=== PATIENT | male | born 1955 | race Caucasian/White ===

== ENCOUNTER 2023-04-29 08:41 | Day surgery (SDC) | payer OTHER ==
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
[~2023-04-29 08:41] MED LIST: Lactated Ringers 1,000 ML IV SCH
[2023-04-29] MEDS ORDERED: Lactated Ringers 1,000 ML IV ONE (08:53)
[2023-04-29] MEDS ORDERED: Xylocaine-Mpf 2% 5 Ml Vial ONE (10:58)
[2023-04-29] MEDS ORDERED: Versed 2 MG/2 ML Injection ONE (10:58)
[2023-04-29] MEDS ORDERED: DIPRIVAN 200 MG/20 ML IV ONE (10:58)
[2023-04-29 12:10] VITALS: O2SAT 95
[2023-04-29 12:18] VITALS: BP 148/82; PULSE 68
--- NOTE | 2023-04-29 15:24 | OP ---
SURGERY DATE/TIME: 04/29/2023 1100 PREOPERATIVE DIAGNOSIS: History of polyps, need follow up screening colonoscopy. POSTOPERATIVE DIAGNOSES: 1) Multiple colon polyps. 2) Mild diverticulosis. 3) Fair bowel prep. PROCEDURES: 1) Colonoscopy to cecum with hot biopsy polypectomy two small transverse colon polyps. 2) Hot biopsy polypectomy two small sigmoid colon polyps. 3) Hot snare polypectomy 5 cm sigmoid colon polyp. 4) Hot snare polypectomy of two separate 3 mm sigmoid colon polyps. 5) Hot snare polypectomy of 3 mm and 3.5 mm rectal polyp. 6) ASA Class III. 7) Withdrawal time approximately 14 minutes. Prep was only fair. SURGEON: Dr. Emmanuel Barakat. ANESTHESIA: MAC. ESTIMATED BLOOD LOSS: Minimal. INDICATIONS: As noted above. Risks and benefits explained in detail but not limited to and consent obtained. DESCRIPTION OF PROCEDURE AND FINDINGS: The patient is taken to the endoscopy room. MAC anesthesia induced. After official time out and no disagreement with planned procedure, digital rectal exam did not reveal any rectal masses. Video colonoscope inserted and passed up through the slightly tortuous sigmoid, descending, transverse and ascending colon around to the cecum. Appendiceal orifice and ileocecal valve well visualized and photo documented. Prep is overall fair with some liquidy semisolid stool throughout the colon just slightly limiting the exam for small lesions. The scope is slowly and carefully withdrawn. Two small polyps in the transverse colon removed with hot biopsy polypectomy and one with piecemeal. Otherwise the scope pulled back to the sigmoid colon. Two small polyps removed with hot biopsy polypectomy. Good hemostasis noted. Two - 3 mm polyps removed with hot snare polypectomy and one approximately 5 mm polyp removed with hot snare polypectomy with brief bursts of cautery. Good hemostasis noted. The patient did have left colon diverticulosis. He did have two small rectal polyps one about 2 mm and one about 3.5 mm removed with hot snare polypectomy in the rectum. Good hemostasis noted. There were some minimal internal hemorrhoids. There were no signs of any large masses. The patient tolerated the procedure well. Withdrawal time around 14 minutes including all of the polypectomies.
== END 2023-04-29 12:26 | disposition home or self-care (01) ==
LOC: SDC 08:41
PROVIDERS: ATTEND Surgery
DX: Z12.11 Encounter for screening for malignant neoplasm of colon (principal); Z09 Encounter for follow-up examination after completed treatment for conditions other than malignant neoplasm; Z86.010 Personal history of colon polyps; D12.5 Benign neoplasm of sigmoid colon; D12.3 Benign neoplasm of transverse colon; K62.1 Rectal polyp; E11.9 Type 2 diabetes mellitus without complications; K57.30 Diverticulosis of large intestine without perforation or abscess without bleeding
CPT/HCPCS: 82947; J2250; J2704